=== PATIENT | male | born 1955 | race Caucasian/White ===

== ENCOUNTER → 2017-02-16 | Outpatient (CLI) | payer OTHER ==
[~2017-02-16] MED LIST: ASPI325T45 PO; OMEP10CA2 PO
[2017-02-16 12:46] LABS: ALT/SGPT 22 U/L (12-78); AST/SGOT 18 U/L (15-37); BLOOD UREA NITROGEN 19 mg/dl (7-18); BUN/CREATININE RATIO 26.1 (10-20); CALCIUM 8.5 mg/dl (8.5-10.1); CARBON DIOXIDE 27 mmol/L (21-32); CHLORIDE 110 mmol/L (98-107); CREATININE 0.71 mg/dl (0.60-1.40); GLUCOSE 106 mg/dl (70-99); POTASSIUM 4.8 mmol/L (3.5-5.1); SODIUM 143 mmol/L (136-145)
[2017-02-16 12:52] LABS: ALB/GLOB RATIO 1.2 (0.9-2); ALKALINE PHOSPHATASE 77 U/L (45-117); CHOLESTEROL 260 mg/dl (0-200); CHOLESTEROL/HDL RATIO 4.7; HDL CHOLESTEROL 55 mg/dl; LDL CHOLESTEROL CALCULATED 190 mg/dl; TRIGLYCERIDES 76 mg/dl (0-150); VERY LOW DENSITY LIPOPROT CALC 15 mg/dl
[2017-02-16 13:11] LABS: LYME DISEASE AB IGG NEG (NEG); LYME DISEASE AB IGM NEG (NEG)
== END | disposition home or self-care (01) ==
LOC: C.LABBFT 09:10
PROVIDERS: ATTEND Physician Assistant Medical
DX: Z13.6 Encounter for screening for cardiovascular disorders (principal); Z12.5 Encounter for screening for malignant neoplasm of prostate; T14.8XXA Other injury of unspecified body region, initial encounter; W57.XXXA Bitten or stung by nonvenomous insect and other nonvenomous arthropods, initial encounter

== ENCOUNTER → 2017-02-16 | Outpatient (CLI) | payer OTHER ==
--- NOTE | 2017-02-16 10:57 | DIAGNOSTIC IMAGING REPORT ---
R KNEE 1 OR 2 VIEWS ROUTINE CLINICAL HISTORY: M25.561 Right knee pain COMPARISON STUDY: None. FINDINGS: Small right knee effusion. Mild cartilage space narrowing within the medial and lateral compartments consistent with degenerative change. No fracture or dislocation. IMPRESSION: No fractures. Small right knee effusion Electronically signed by: Allen Payne M.D. 02/16/2017 10:56 AM Dictated Date/Time: 02/16/2017 10:55 AM
--- NOTE | 2017-02-16 10:58 | DIAGNOSTIC IMAGING REPORT ---
C-SPINE ROUTINE 4 OR 5 VIEWS HISTORY: Neuropathy. Pain. R20.2 Paresthesia of both lower extremities COMPARISON: None. FINDINGS: The cervical spine is visualized from C1 through the superior endplate of T1. There is no fracture. No subluxation. Moderate degenerative disc change at the entire cervical region. Osteophytic narrowing of the bulk of the neuroforamina bilaterally at all levels. IMPRESSION: No fracture or subluxation within the cervical spine. Generalized moderate degenerative change. Osteophytic narrowing of the bulk of the neuroforamina bilaterally at all levels. The above report was generated using voice recognition software. It may contain grammatical, syntax or spelling errors. Electronically signed by: Ren Forte M.D. 02/16/2017 10:56 AM Dictated Date/Time: 02/16/2017 10:54 AM
--- NOTE | 2017-02-16 10:59 | DIAGNOSTIC IMAGING REPORT ---
L-SPINE MIN 4 VIEWS ROUTINE HISTORY: 61 years-old Male R20.2 Paresthesia of both lower extremities acute right knee pain with tingling of the bilateral lower extremities COMPARISON: CT 10/19/2016 TECHNIQUE: 5 views of the lumbar spine FINDINGS: 5 lumbar type vertebral segments are present multilevel advanced intervertebral disc space narrowing, endplate spurring and facet arthropathy. 20% anterior endplate compression deformity of T12 appears unchanged from comparison CT study. No significant retropulsion. No acute compression deformity or malalignment. There is mild straightening of the normal cervical lordosis. No pars defect. Soft tissues are unremarkable. Moderate degenerative changes of the bilateral hips. IMPRESSION: 1. No acute lumbar spine fracture or subluxation. 2. Chronic 20% anterior endplate compression deformity of T12. 3. Multilevel advanced intervertebral disc space narrowing, facet arthropathy and spondylitic changes. The above report was generated using voice recognition software. It may contain grammatical, syntax or spelling errors. Electronically signed by: Nicolas Charles M.D. 02/16/2017 10:58 AM Dictated Date/Time: 02/16/2017 10:55 AM
== END | disposition home or self-care (01) ==
LOC: C.RAD1850 09:49
PROVIDERS: ATTEND Physician Assistant Medical
DX: R20.2 Paresthesia of skin (principal); M25.561 Pain in right knee; M47.812 Spondylosis without myelopathy or radiculopathy, cervical region; M48.02 Spinal stenosis, cervical region; M25.461 Effusion, right knee; M51.36 Other intervertebral disc degeneration, lumbar region; S22.080A Wedge compression fracture of T11-T12 vertebra, initial encounter for closed fracture; X58.XXXA Exposure to other specified factors, initial encounter

== ENCOUNTER → 2017-03-10 | Outpatient (CLI) | payer OTHER | END | disposition home or self-care (01) | LOC: C.CPL 09:07 | PROVIDERS: ATTEND Orthopaedic Surgery Sports Medicine | DX: Z01.810 Encounter for preprocedural cardiovascular examination (principal) ==

== ENCOUNTER → 2017-04-17 | Day surgery (SDC) | payer OTHER ==
[2017-04-10 07:54] VITALS: Ht 177.8 cm; Wt 119.5 kg
[~2017-04-17] VITALS: Ht 177.8 cm; Wt 119.5 kg
[~2017-04-17] MED LIST changes: -ASPI325T45 PO; +ASPI81TA28 PO; +DEXAMETHASONE SOD INJ 4 MG/ML VIAL ONE; +KETO10TA PO; +LIDOCAINE HCL 1% MPF 5 ML VIAL ONE; +METH1TAB81 PO; -OMEP10CA2 PO; +PRLSR20 PO
--- NOTE | 2017-04-17 07:35 | History & Physical Bridge - SC ---
H&P Re-Evaluation Bridge Note: I have examined the patient, reviewed the History & Physical and in the interval since the performance of the History & Physical I have noted the following changes of clinical significance: No changes noted
--- NOTE | 2017-04-17 07:52 | Discharge Instructions-SurgCtr ---
Discharge Instructions Date of Service Apr 17, 2017. Visit Reason for Visit: Spondylosis Discharge Discharge Diagnosis / Problem: same Discharge Goals Goal(s): Improve function Medications Stopped Medications Name(s): ASA 81MG DAILY,LAST DOSE 04/10/17 Activity Recommendations Activity Limitations: resume your previous activity Anesthesia . Post Anesthesia Instructions: If you have had General Anesthesia or IV Sedation: * Do not drive today. * Resume driving when surgeon permits. * Do not make important decisions or sign legal documents today. * Call surgeon for: 1. Temperature elevations greater than 101 degrees F. 2. Uncontrollable pain. 3. Excessive bleeding. 4. Persistent nausea and vomiting. 5. Medication intolerance (nausea, vomiting or rash). * For nausea and vomiting use only clear liquids such as: tea, soda, bouillon until nausea subsides, then gradually increase diet as tolerated. * If you have any concerns or questions, call your surgeon's office. If physician is unavailable and it is an emergency, call 911 or go to the nearest emergency room. . Diet Recommendations Home Diet: no limitations Procedures Procedures Performed: EPIDURAL STEROID INJECTION L3-L4;L4-L5 Pending Studies Studies pending at discharge: no Medical Emergencies . Who to Call and When: Medical Emergencies: If at any time you feel your situation is an emergency, please call 911 immediately. . Non-Emergent Contact Non-Emergency issues call your: Primary Care Provider . . "Provider Documentation" section prepared by Kishore Rascon. .
--- NOTE | 2017-04-17 07:53 | [facility] Post Operative Brief Note ---
Immediate Operative Summary Operative Date Apr 17, 2017. Pre-Operative Diagnosis SPONDYLOSIS Post-Operative Diagnosis SAME Procedure(s) Performed EPIDURAL STEROID INJECTION L3-L4;L4-L5 Surgeon Dr Kishore Rascon Street Sweeper Operator Surgeon(s) none Estimated Blood Loss 0 Findings arthritis Specimens none Complication(s) None Disposition Recovery Room / PACU
[2017-04-17 07:55] VITALS: TEMP 36.5
--- NOTE | 2017-04-17 08:04 | OPERATIVE REPORT ---
DATE OF OPERATION: 04/17/2017 PREOPERATIVE DIAGNOSIS: Stenosis lumbar spine, L3-L4, L4-L5. POSTOPERATIVE DIAGNOSIS: Same. PROCEDURE: Include epidural steroid injection 4-5 and 3-4 lumbar. DESCRIPTION OF PROCEDURE: The patient was taken to the minor procedure room and placed prone, prepped, draped sterile. The 22-gauge Tuohy spinal needle advanced to the epidural space at L4-5, 2 mL of dexamethasone injected in toto. The patient tolerated the procedure well. We used the volume acceptance technique. The patient was discharged home in improved stable condition. I attest to the content of the Intraoperative Record and any orders documented therein. Any exception s are noted below.
[2017-04-17 08:07] VITALS: BP 144/80; PULSE 65; O2SAT 95
--- NOTE | 2017-04-29 16:01 | EDITING REQUIRED CODING QUERY ---
CODING QUERY Dr. Rascon: Date of Service: 04-17-17 To promote full compliance with coding requirements relating to patient care, provider participation is requested in all cases of [place] [employer] footballer uncertainty. Please assist us with the question(s) below: Coding Question(s): In your dictation you stated L4-5 was injected. Throughout the chart it is stated that L3-4 and L4-5 were going to have an epidural steroid injection. Please specify if 2 levels were injected and if so, please document for record completion. Please specify if injections were performed on: ( ) Right ( ) Left ( ) Bilateral Physician's Response(s): Thank you Lupe Junior, Glass Finisher Principal Diagnosis: "_that condition established after study, to be chiefly responsible for occasioning the admission of the patient to the hospital for care." Co-Existing Principal Diagnosis: "_when two or more diagnoses equally meet the criteria for principal diagnosis as determined by the circumstances of admission, diagnostic work up, and/or therapy provided, and the Alphabetic Index, Tabular List, or another coding guideline does not provide sequencing direction, any one of the diagnoses may be sequenced first." "When the physician has documented what appears to be a current diagnosis in the body of the record, but has not included the diagnosis in the final diagnostic statement, the physician should be asked whether the diagnosis should be added." (Source Coding [facility] 2 QTR90. p3-4)
--- NOTE | 2017-04-30 11:09 | OPERATIVE REPORT ---
DATE OF OPERATION: 04/17/2017 PROCEDURE: Epidural steroid injection centrally placed at L3-L4, L4-L5 lumbar spine. DESCRIPTION OF PROCEDURE: The patient was taken to the minor procedure room, prepped and draped sterile. We engaged the epidural space centrally located L3-4, L4-5. One mL of dexamethasone injected each of these areas. Needle withdrawn. Band-Aid applied. The patient returned to recovery satisfactory. I attest to the content of the Intraoperative Record and any orders documented therein. Any exception s are noted below.
== END | disposition home or self-care (01) ==
LOC: X.SURG 06:45
PROVIDERS: ATTEND Orthopaedic Surgery Orthopaedic Surgery of the Spine
DX: M47.896 Other spondylosis, lumbar region (principal); M54.5 Low back pain; E78.00 Pure hypercholesterolemia, unspecified; J45.909 Unspecified asthma, uncomplicated; Z83.3 Family history of diabetes mellitus; Z82.49 Family history of ischemic heart disease and other diseases of the circulatory system; Z82.3 Family history of stroke

== ENCOUNTER 2017-05-25 05:26 | Observation (INO) | payer OTHER ==
[2017-05-15 09:48] VITALS: Ht 177.8 cm; Wt 118.9 kg
--- NOTE | 2017-05-15 10:12 | PAT Medication Instructions ---
Service Date May 15, 2017. Current Home Medication List Aspirin (Aspirin Ec), 162 MG PO QAM Aspirin (Aspirin Ec), 81 MG PO QPM Ibuprofen (Advil), 400-600 MG PO PRN Omeprazole (Prilosec), 20 MG PO QAM Medication Instructions For Your Scheduled Surgery - Check with surgeon for instructions: Aspirin (Aspirin Ec), 162 MG PO QAM Aspirin (Aspirin Ec), 81 MG PO QPM Ibuprofen (Advil), 400-600 MG PO PRN - Take the following medications the morning of surgery with a sip of water: Omeprazole (Prilosec), 20 MG PO QAM If you have any questions please call us at [phone] or [phone] or [phone]
--- NOTE | 2017-05-15 10:59 | DIAGNOSTIC IMAGING REPORT ---
CHEST 2 VIEWS ROUTINE HISTORY: Preop. COMPARISON: None. FINDINGS: The lungs are clear. Cardiac silhouette is normal in size. No pleural effusions. No pneumothorax. Small symmetric nodular densities overlying the lower lobes favor nipple shadows. IMPRESSION: No acute process. Electronically signed by: Allen Payne M.D. 05/15/2017 10:58 AM Dictated Date/Time: 05/15/2017 10:57 AM
[2017-05-15 11:15] LABS: BASO % 0.5 %; BASO ABS # 0.03 K/uL (0-0.2); EOS % 2.4 %; EOS ABS # 0.13 K/uL (0-0.5); HEMATOCRIT 40.3 % (42-52); HEMOGLOBIN 13.9 g/dL (14.0-18.0); IG# 0.01 K/uL (0.00-0.02); LYMPH % 31.9 %; LYMPH ABS # 1.76 K/uL (1.2-3.4); MEAN CELL VOLUME 87.8 fL (80-100); MEAN CORPUSCULAR HEMOGLOBIN 30.3 pg (25-34); MEAN CORPUSCULAR HGB CONC 34.5 g/dl (32-36); MEAN PLATELET VOLUME 10.2 fL (7.4-10.4); MONO ABS # 0.44 K/uL (0.11-0.59); NEUT ABS # 3.14 K/uL (1.4-6.5); PLATELET COUNT 167 K/uL (130-400); RED CELL DISTRIBUTION WIDTH CV 13.2 % (11.5-14.5); RED CELL DISTRIBUTION WIDTH SD 41.6 fL (36.4-46.3); WHITE BLOOD COUNT 5.51 K/uL (4.8-10.8)
[2017-05-15 11:21] LABS: CALCIUM 8.9 mg/dl (8.5-10.1); CREATININE 0.72 mg/dl (0.60-1.40); POTASSIUM 4.3 mmol/L (3.5-5.1)
[2017-05-15 11:30] LABS: PTT PATIENT 26.1 SECONDS (21.0-31.0)
--- NOTE | 2017-05-24 18:48 | HISTORY & PHYSICAL EXAMINATION ---
DATE OF ADMISSION: 05/25/2017 CHIEF COMPLAINT: Back and lower extremity difficulty, paresthesias, numbness and tingling. PREOPERATIVE DIAGNOSIS: Spinal stenosis. He is being preoped for a laminectomy and fusion L5-S1. He has had ongoing pain, numbness, tingling, almost incapacitating pain for greater than 1 year. He has failed conservative management. He cannot perform the necessary job function currently. PAST MEDICAL HISTORY: High cholesterol, emphysema, hypertension. No cancer. Does have a history of kidney stones. No anesthesia difficulties, obesity, acid reflux. PAST SURGICAL HISTORY: Hammertoe resection, right knee scope, hemorrhoid surgery. SOCIAL HISTORY: Nonsmoker, nonalcohol user. MEDICATIONS: Aspirin and a medication for heartburn. He denies blurred vision, double vision, tinnitus, vertigo, memory loss, confusion. No history of chest pain, palpitations, angina. No asthma, wheezing, shortness of breath. No nausea, vomiting, bowel and bladder incontinence. His major positive review really is only positive review is his lower extremity difficulty, paresthesias, numbness and pain. PHYSICAL EXAMINATION: VITAL SIGNS: His height is 5 feet 6 inches, he is 240 pounds. GENERAL:. He is alert, oriented. Mentation normal. No confusion. Follows directions. Appropriately dressed. HEENT: Normal. CARDIAC: Normal S1, S2, no S3. LUNGS: Clear to auscultation. No rales, rhonchi or wheezing. ABDOMEN: Soft, nontender, no masses, no organomegaly, no pain. EXTREMITIES: Intact. He has decreased knee jerk, decreased Achilles reflexes bilaterally. He has adequate push off strength. He has difficulty to an upright position. He has pain with percussion. RADIOLOGY DATA: Images demonstrate spinal stenosis lumbar spine, lumbar L4 to S1. PROCEDURE: Laminectomy and fusion L4-L5 and L5-S1 lumbar spine.
[~2017-05-25] VITALS: Ht 177.8 cm; Wt 118.9 kg
[2017-05-25] VITALS (10 sets, daily range): BP systolic 125–153; BP diastolic 67–95; PULSE 8–93; TEMP 36.5–36.9; O2SAT 92–96
[~2017-05-25 05:26] MED LIST changes: -DEXAMETHASONE SOD INJ 4 MG/ML VIAL ONE; +IBUP-1050 PO; -KETO10TA PO; -LIDOCAINE HCL 1% MPF 5 ML VIAL ONE; -METH1TAB81 PO
[2017-05-25] MEDS ORDERED: NSS 1000ML IV SCH (06:00)
[2017-05-25] MEDS ORDERED: CEFAZOLIN 2000MG IV PUSH 10 ML IV SCH (06:00)
[2017-05-25] MEDS ORDERED: LACTATED RINGER'S 1000ML 1,000 ML IV SCH (06:00)
[2017-05-25] MEDS ORDERED: DEXAMETHASONE SOD INJ 4 MG/ML VIAL ONE (06:25)
[2017-05-25] MEDS ORDERED: ROCURONIUM BROMIDE 10 MG/ML 5 ML VIAL IV ONE ×2 (06:25→07:59)
[2017-05-25] MEDS ORDERED: MIDAZOLAM HCL 1 MG/ML 2ML VIAL ONE (06:25)
[2017-05-25] MEDS ORDERED: FENTANYL CITRATE INJ 50 MCG/1 ML 2 ML VIAL ONE (06:25)
[2017-05-25] MEDS ORDERED: PROPOFOL IV EMULSION 10 MG/ML 20 ML VIAL IV ONE (06:25)
[2017-05-25] MEDS ORDERED: LIDOCAINE HCL 2% 2 ML VIAL (20MG/ML) ONE (06:25)
[2017-05-25] MEDS ORDERED: ONDANSETRON INJ 2 MG/ML 2 ML VIAL ONE (06:25)
[2017-05-25] MEDS ORDERED: GELATIN SPONGE SZ 100 ONE (06:54)
[2017-05-25] MEDS ORDERED: VANCOMYCIN HCL 1000MG/20ML VIAL ONE (06:55)
[2017-05-25] MEDS ORDERED: THROMBIN FOR SOLN 20000 UNIT KIT ONE (06:55)
[2017-05-25] MEDS ORDERED: BACITRACIN 50000 UNIT VIAL ONE (06:55)
[2017-05-25] MEDS ORDERED: BUPIVACAINE/EPINEPHRINE 0.5% MPF 1:200,000 30 ML VIAL ONE (06:55)
[2017-05-25] MEDS ORDERED: MoRPHine SULFATE 10 MG/ML CARP/VIAL IV PRN (07:00)
[2017-05-25] MEDS ORDERED: FENTANYL CITRATE INJ 50 MCG/1 ML 2 ML VIAL IV PRN (07:00)
[2017-05-25] MEDS ORDERED: ATROPINE SULFATE 0.1 MG/ML 5ML SYR IV PRN (07:00)
[2017-05-25] MEDS ORDERED: ONDANSETRON INJ 2 MG/ML 2 ML VIAL IV PRN ×2 (07:00→09:15)
[2017-05-25] MEDS ORDERED: EpHEDrine SULFATE INJ 50 MG/ML AMP IV PRN (07:00)
[2017-05-25] MEDS ORDERED: HYDROmorphone INJ 2 MG/ML SYR/VIAL ONE (07:41)
[2017-05-25] MEDS ORDERED: EpHEDrine SULFATE 50MG/5ML SYR ONE (07:56)
--- NOTE | 2017-05-25 08:47 | DIAGNOSTIC IMAGING REPORT ---
INTRAOPERATIVE RADIOGRAPH CLINICAL HISTORY: L4-S1 laminectomy. Fluoroscopy time: 2 seconds. FINDINGS: A single spot fluoroscopic image of the lower lumbar spine is presented. A surgical probe projects posteriorly at the level of S1. IMPRESSION: Intraoperative image from lumbar spine surgery as above. See operative report for detailed findings. Electronically signed by: Ashok Hurley M.D. 05/25/2017 8:45 AM Dictated Date/Time: 05/25/2017 8:45 AM
[2017-05-25] MEDS ORDERED: NEOSTIGMINE METHYLSULFATE 5 MG/5 ML SYR ONE (09:05)
[2017-05-25] MEDS ORDERED: GLYCOPYRROLATE INJ 0.2 MG/ML VIAL ONE (09:05)
--- NOTE | 2017-05-25 09:07 | [facility] Post Operative Brief Note ---
Immediate Operative Summary Operative Date May 25, 2017. Pre-Operative Diagnosis Spinal Stenosis Post-Operative Diagnosis Spinal Stenosis Procedure(s) Performed L4-L5, L5-S1 Laminectomy and Fusion Surgeon Dr. Italia Rascon Heel Caser Surgeon(s) Nadya Hendrickson PA-C Estimated Blood Loss 100mL Findings Consistent with Post-Op Diagnosis Specimens none per surgeon Drains None Anesthesia Type General Disposition Disposition: Recovery Room / PACU
[2017-05-25] MEDS ORDERED: ACETAMINOPHEN 325 MG TAB PO PRN (09:15)
[2017-05-25] MEDS ORDERED: HYDROmorphone INJ 2 MG/ML SYR/VIAL IV PRN (09:15)
[2017-05-25] MEDS ORDERED: PROMETHAZINE HCL INJ 12.5 MG in SODIUM CHLORIDE 0.9% 50ML 50 ML IV PRN (09:15)
[2017-05-25] MEDS ORDERED: HYDROmorphone INJ 1 MG/ML SYR IV PRN (09:15)
[2017-05-25] MEDS ORDERED: LORAZEPAM INJ 1 MG in SYRINGE 0 ML IV PRN (09:15)
[2017-05-25] MEDS ORDERED: METOCLOPRAMIDE HCL INJ 5 MG/ML 2 ML VIAL IV PRN (09:15)
[2017-05-25] MEDS ORDERED: LORAZEPAM 1 MG TAB PO PRN (09:15)
[2017-05-25] MEDS ORDERED: OXYCODONE/ACETAMINOPHEN 5-325 TAB PO PRN (09:15)
[2017-05-25] MEDS ORDERED: TRAMADOL HCL 50 MG TAB PO PRN (09:15)
[2017-05-25] MEDS ORDERED: MAGNESIUM HYDROXIDE SUSP 30 ML UDC PO PRN (09:15)
[2017-05-25 09:36] LABS: HEMATOCRIT 37.5 % (42-52)
[2017-05-25] MEDS ORDERED: IV FLUIDS COMPLETED PRN (10:15)
--- NOTE | 2017-05-25 10:22 | OPERATIVE REPORT ---
DATE OF OPERATION: 05/25/2017 PREOPERATIVE DIAGNOSIS: Stenosis lumbar spine L4-L5, L5-S1; minor instability L4-L5, L5-S1. POSTOPERATIVE DIAGNOSIS: Same. PROCEDURE: Included laminectomy and fusion L4-L5 and L5-S1. SURGEON: Dr. Rascon. HISTOLOGY MANAGER: Gordon Hendrickson PA-C. COMPLICATION: Zero. BLOOD LOSS: 100 mL DESCRIPTION OF PROCEDURE: The patient was taken to the operating room, a general intubated anesthetic provided to the patient, placed prone, shaved, scrubbed, prepped and draped sterile. Antibiotic provided prior and a Bhatti catheter administered. We made a skin incision, fascial incision. We dissected out over the transverse processes, putting a deep self-retaining retractor. We then carefully dissected free the neural elements, laminectomy at L5-S1, L4-L5, foraminotomies, partial facetectomies. Each and every nerve root was dissected free of any obstruction. We then irrigated thoroughly. We placed some Gelfoam over the dural structures. We bone grafted over the transverse process of L4-L5 and sacrum bilaterally. We closed in layered fashion with #1 Vicryl, 2-0 and 3-0 nylon. Sterile dressings applied. Vancomycin powder placed deep to the wound. Sterile dressing was applied. The patient returned to PACU stable. No apparent complications. I attest to the content of the Intraoperative Record and any orders documented therein. Any exception s are noted below.
--- NOTE | 2017-05-25 10:25 | Anesthesiology Progress Note ---
Anesthesia Post Op Note Date & Time May 25, 2017 at 10:25 Vital Signs Pain Intensity: 1 Vital Signs Past 12 Hours Date Time Temp Pulse Resp B/P (MAP) Pulse Ox O2 Delivery O2 Flow Rate FiO2 05/25/17 09:45 36.5 05/25/17 09:41 156/79 05/25/17 09:40 93 14 100 05/25/17 09:40 93 14 05/25/17 09:36 158/77 05/25/17 09:35 89 9 05/25/17 09:35 89 9 99 05/25/17 09:31 152/78 05/25/17 09:30 80 16 99 05/25/17 09:30 79 05/25/17 09:26 150/77 05/25/17 09:25 84 12 05/25/17 09:25 83 12 98 05/25/17 09:20 86 13 05/25/17 09:20 86 13 162/77 100 05/25/17 09:17 168/77 05/25/17 09:05 36.3 88 16 167/88 100 Oxymask 7 05/25/17 05:56 36.7 71 20 153/95 94 Room Air Notes Mental Status: alert / awake / arousable, participated in evaluation Pt Amnestic to Procedure: Yes Nausea / Vomiting: adequately controlled Pain: adequately controlled Airway Patency, RR, SpO2: stable & adequate BP & HR: stable & adequate Hydration State: stable & adequate Anesthetic Complications: no major complications apparent
[2017-05-25] MEDS: SODIUM CHLORIDE 0.9% 1000ML 1,000 ML IV SCH ×2 (12:36→23:50)
[2017-05-25] MEDS: KETOROLAC TROMETHAMINE 30 MG/ML VIAL IV SCH ×3 (12:40→23:50)
[2017-05-25] MEDS: DEXAMETHASONE INJ 10 MG in SYRINGE 0 ML IV SCH ×2 (14:04→22:25)
[2017-05-25] MEDS: CEFAZOLIN IV 2,000 MG in SYRINGE 0 ML IV SCH ×2 (16:18→23:50)
[2017-05-25] MEDS: ASPIRIN 81 MG ECTAB PO SCH (20:21)
[2017-05-25] MEDS: OXYCODONE/ACETAMINOPHEN 5-325 TAB PO PRN (20:21)
[2017-05-26 03:05] VITALS: BP 124/61; PULSE 72; TEMP 36.8; O2SAT 94
[2017-05-26] MEDS: KETOROLAC TROMETHAMINE 30 MG/ML VIAL IV SCH ×4 (05:56→23:37)
[2017-05-26] MEDS: DEXAMETHASONE INJ 10 MG in SYRINGE 0 ML IV SCH ×3 (05:56→21:22)
[2017-05-26] MEDS ORDERED: BISACODYL 10 MG SUPP PR PRN (06:00)
[2017-05-26] MEDS ORDERED: BISACODYL 5 MG TABEC PO PRN (06:00)
[2017-05-26] MEDS ORDERED: NURSING DECISION MEDICATION ORDER SCH (06:45)
[2017-05-26 07:45] VITALS: BP 144/73; PULSE 76; TEMP 36.7; O2SAT 94
--- NOTE | 2017-05-26 08:02 | ORTHOPEDICS PROGRESS NOTE ---
DATE: 05/26/2017 SUBJECTIVE: Alert, oriented, moderate complaints of pain, no shortness of breath, confusion. OBJECTIVE: Vital signs stable. Moves extremities. ASSESSMENT: Laminectomy and fusion done yesterday. He is now 22 hours post-surgery. DISPOSITION: Instruction precautions, education. We will pull his Hemovac drain. We will get him up and ambulatory. We will tentatively get him home tomorrow.
[2017-05-26] MEDS: CEFAZOLIN IV 2,000 MG in SYRINGE 0 ML IV SCH (08:47)
[2017-05-26] MEDS: POLYETHYLENE (MIRALAX) 17 GM PACK PO SCH (08:47)
[2017-05-26] MEDS: PANTOprazole SOD 40 MG TAB PO SCH (08:47)
[2017-05-26] MEDS: ASPIRIN 81 MG ECTAB PO SCH ×2 (08:47→21:21)
[2017-05-26 11:28] VITALS: BP 150/74; PULSE 70; TEMP 36.9; O2SAT 95
[2017-05-26] MEDS: OXYCODONE/ACETAMINOPHEN 5-325 TAB PO PRN (12:07)
[2017-05-26 15:52] VITALS: BP 95/50; PULSE 70; TEMP 36.7; O2SAT 95
[2017-05-26 20:57] VITALS: BP 132/65
[2017-05-26 23:50] VITALS: BP 137/77; PULSE 61; TEMP 36.6; O2SAT 96
[2017-05-27] MEDS: KETOROLAC TROMETHAMINE 30 MG/ML VIAL IV SCH ×2 (05:40→12:26)
[2017-05-27 07:56] VITALS: BP 150/80; PULSE 69; TEMP 36.8; O2SAT 94
--- NOTE | 2017-05-27 07:57 | Discharge Instructions ---
Discharge Instructions Date of Service May 27, 2017. Admission Reason for Admission: Spinal Stenosis Discharge Discharge Diagnosis / Problem: same Discharge Goals Goal(s): Improve function Activity Recommendations Activity Limitations: as noted below Lifting Limitations: until after follow-up appointment Exercise/Sports Limitations: until after follow-up appointment May Resume Sexual Activity: after follow-up appointment Shower/Bathe: keep incision dry no bending; CHEST PAIN ; CALL 911 . Instructions / Follow-Up Instructions / Follow-Up MEDICATIONS: Please take your prescriptions as instructed at your pre-op appointment. SPECIAL CARE: The following information is intended to answer some of the common questions and concerns regarding your surgery. Each patient is an individual and receives individual counselling throughout the course of treatment, from diagnosis to surgery all the way through recovery. What follows is not an exhaustive list, but should be a useful guide to some of the common questions and concerns patients have regarding their surgeries. These are not provided to keep you from calling us; rather, they give you something accurate and concrete to reference as you recover from your procedure. If you need us, we are available to you. As always, if you are not sure about something, call us at [phone]. MEDICAL EMERGENCIES: For these conditions, call 911 or go to your local hospital-based Emergency Department - not [facility] or equivalent. * Paralysis * Severe chest pain or difficulty breathing * Swelling or redness of either leg Spine procedures can be rather complex and though complications are rare, they do occur. In such cases, effective advice regarding emergency situations cannot always be addressed over the telephone. You may be referred to the emergency department for more effective management of your problem. Activity Limitations: It is important to give your body time to heal, so please limit your activities : * In general, don't do anything that moves your spine too much. You should avoid contact sports, twisting or heavy lifting while you recover. * 5-10 pounds is all you should attempt to lift. * You should not plan on driving for approximately 3 weeks and you should avoid traveling more than 30-45 minutes at a time. Longer trips should be broken down with walking breaks spaced appropriately. * Physical therapy is not usually required. * Walking and good posture practices will help you recover and regain your function. * Avoid straining or sudden changes in position. * In general, the goal is to take it easy and recover. Don't cause any new problems. Just relax. Showers: * Do not take a bath, use a Jacuzzi or hot tub or otherwise submerge your incision. * It is usually safe to take a shower 4-5 days after your surgery. * Your incision does not require any special creams or ointments. * Simply clean it with soap and water, dry and re-dress with a clean bandage afterwards. Incision: * Keep incision clean, dry and protected until your first follow-up appointment. * Some amount of drainage and redness is normal. Any drainage should be fairly clear and not have a foul odor. * If you feel anything is wrong or you have excessive drainage, please call us. * Your stitches and socrates will be removed 10-14 days after your surgery. At the time of your first post-op visit. * Neck surgeries are typically closed with a suture underneath the skin. The steri-strips over the incision should be maintained until we see you in the office. Bracing: * You may be provided with a back or neck brace to encourage good posture and prevent injury. It will remind you not to do too much as you heal and will alert others to the fact that you have had a surgery. * Back braces may be removed for showers and when you are resting at home. They must be worn when you are walking around for any period of time or for travel. * For neck surgery, you will likely be provided with two cervical collars. The soft collar ([place] or foam rubber) is worn most commonly throughout the day and while sleeping. The plastic collar (provided at the hospital) is for showering/bathing. * Except while eating, collars should remain in place. More specifically, bracing is provided for a purpose and should be worn. * Please obtain your brace or collars prior to your operation and bring them to the hospital with you on the day of surgery. * You should also bring your collars to your post-op appointment with Dr. Rascon. You should always take good care of your body and practice healthy habits, especially following surgery. You should: * Follow your doctor's treatment plan * Sit and stand properly with good posture (ears over shoulders, shoulders over hips) Don't slouch * Learn to lift correctly * Exercise regularly (low-impact aerobic exercise is especially good, but check with your doctor first) * Generally, be up and walking for 5-10 minutes at a time at least 3-4 times per day from the day you get home * Increasing walking to tolerance until you can walk for 20-30 minutes at a time * Attain and maintain a healthy body weight * Eat healthy foods ( a well-balanced, low-fat diet rich in fruits and vegetables) and get enough calcium * Avoid excessive use of alcohol When to call our office - If you notice any of the following: * Increased pain not relieve by pain medicine * Fevers greater then 100 degrees F, chills or flu symptoms * Increased redness around incision * Drainage from the incision that is not clear * Any foul smelling drainage * Swelling or fluid collection beneath the skin Miscellaneous: * In the hospital, you may be given a walker or cane for support while walking. These are temporary needs and are intended to prevent injuries due to falls. You may discontinue them when you feel strong and steady enough on your feet. * Sleep in a comfortable position. We find that many patients find a lounge chair or recliner with several pillows to be beneficial in the early post-operative period. * The support stockings should be used for 7-10 days and may be discontinued when you are back to walking more and conducting usual household activities. No problem is insignificant. We are here to help you and get you well. Contact us at [phone]. Definitions: Foraminotomy: If part of the disc or a bone spur (osteophyte) is pressing on a nerve as it leaves the vertebra (through an exit called the foramen), a foraminotomy may be done. Otomy means "to make an opening." A foraminotomy is making the opening of the foramen larger, so the nerve can exit without being compressed. Laminotomy: Similar to the foraminotomy, a laminotomy makes a larger opening, this time in your bony plate protecting your spinal canal and spinal cord (the lamina). The lamina may be pressing on your nerve, so the surgeon may make more room for the nerves using a laminotomy. Laminectomy: Sometimes, a laminotomy is not sufficient. The surgeon may need to remove all or part of the lamina. This procedure is called a laminectomy. This can often be done at many levels without any harmful effects. Current Hospital Diet Patient's current hospital diet: Regular Diet Discharge Diet Recommended Diet: Regular Diet Procedures Procedures Performed: L4-L5, L5-S1 Laminectomy and Fusion Pending Studies Studies pending at discharge: no Medical Emergencies . Who to Call and When: Medical Emergencies: If at any time you feel your situation is an emergency, please call 911 immediately. . Non-Emergent Contact Non-Emergency issues call your: Primary Care Provider . "Provider Documentation" section prepared by Kishore Rascon. . VTE Core Measure Inpt VTE Proph given/why not?: Treatment not indicated
[2017-05-27] MEDS ORDERED: HYDR-4383 PO (07:58)
[2017-05-27] MEDS ORDERED: IBUP-1427 PO (08:00)
[2017-05-27 08:12] VITALS: O2SAT 94
--- NOTE | 2017-05-27 08:19 | DISCHARGE SUMMARY ---
SUBJECTIVE: Alert, oriented. No chest pain, shortness of breath, no confusion. OBJECTIVE: Vital signs stable. Moves all extremities. No apparent deficits. ASSESSMENT: Status post lumbar spine laminectomy for stenosis, doing well in the short run. DISPOSITION: Instructions, precautions, education. We will discharge him home later on this morning. Use medication on his chart. He has a followup appointment. He is being given ample instructions, precautions, and importantly chest pain, shortness of breath to call 911.
[2017-05-27] MEDS: ASPIRIN 81 MG ECTAB PO SCH (08:35)
[2017-05-27] MEDS: PANTOprazole SOD 40 MG TAB PO SCH (08:36)
[2017-05-27] MEDS: POLYETHYLENE (MIRALAX) 17 GM PACK PO SCH (08:36)
[2017-05-27 12:07] VITALS: BP 150/80; PULSE 69; TEMP 36.8; O2SAT 94
== END 2017-05-27 13:34 | disposition home or self-care (01) ==
LOC: C.ACU 05:26 → C.3E 07:10 → ENRESERV 09:35
PROVIDERS: ADMIT Orthopaedic Surgery Orthopaedic Surgery of the Spine; ATTEND Orthopaedic Surgery Orthopaedic Surgery of the Spine
DX: M48.061 Spinal stenosis, lumbar region without neurogenic claudication (principal); E78.00 Pure hypercholesterolemia, unspecified; J43.9 Emphysema, unspecified; I10 Essential (primary) hypertension; Z79.82 Long term (current) use of aspirin

== ENCOUNTER → 2017-08-05 | Outpatient (CLI) | payer OTHER ==
[~2017-08-05] MED LIST changes: +HYDR-4383 PO; +IBUP-1427 PO
== END | disposition home or self-care (01) ==
LOC: C.LABBFT 09:07
PROVIDERS: ATTEND Physician Assistant Medical
DX: E78.5 Hyperlipidemia, unspecified (principal)

== ENCOUNTER → 2017-11-24 | Outpatient (CLI) | payer OTHER ==
[2017-11-24 12:32] LABS: BASO % 0.4 %; BASO ABS # 0.02 K/uL (0-0.2); EOS % 2.4 %; EOS ABS # 0.12 K/uL (0-0.5); HEMATOCRIT 39.6 % (42-52); HEMOGLOBIN 13.3 g/dL (14.0-18.0); LYMPH % 35.2 %; LYMPH ABS # 1.78 K/uL (1.2-3.4); MEAN CELL VOLUME 87.2 fL (80-100); MEAN CORPUSCULAR HEMOGLOBIN 29.3 pg (25-34); MEAN CORPUSCULAR HGB CONC 33.6 g/dl (32-36); MEAN PLATELET VOLUME 11.1 fL (7.4-10.4); MONO % 8.9 %; MONO ABS # 0.45 K/uL (0.11-0.59); NEUT % 53.1 %; NEUT ABS # 2.69 K/uL (1.4-6.5); PLATELET COUNT 127 K/uL (130-400); RED CELL DISTRIBUTION WIDTH CV 13.8 % (11.5-14.5); RED CELL DISTRIBUTION WIDTH SD 44.1 fL (36.4-46.3); WHITE BLOOD COUNT 5.06 K/uL (4.8-10.8)
[2017-11-24 13:09] LABS: ALBUMIN 3.6 gm/dl (3.4-5.0); ALKALINE PHOSPHATASE 65 U/L (45-117); ALT/SGPT 17 U/L (12-78); AST/SGOT 15 U/L (15-37); BLOOD UREA NITROGEN 18 mg/dl (7-18); CALCIUM 8.3 mg/dl (8.5-10.1); CARBON DIOXIDE 24 mmol/L (21-32); CREATININE 0.83 mg/dl (0.60-1.40); GLUCOSE 99 mg/dl (70-99); POTASSIUM 4.3 mmol/L (3.5-5.1); SODIUM 139 mmol/L (136-145); TOTAL PROTEIN 6.4 gm/dl (6.4-8.2)
== END | disposition home or self-care (01) ==
LOC: C.LABBFT 08:59
PROVIDERS: ATTEND Physician Assistant Medical
DX: R03.0 Elevated blood-pressure reading, without diagnosis of hypertension (principal)

== ENCOUNTER → 2017-12-11 | Outpatient (CLI) | payer OTHER ==
[~2017-12-11] MED LIST changes: -HYDR-4383 PO; -IBUP-1427 PO
--- NOTE | 2017-12-11 11:23 | DIAGNOSTIC IMAGING REPORT ---
MRA HEAD WITHOUT CONTRAST CLINICAL HISTORY: 62 years-old Male presenting with high blood pressure, dizziness, tunnel vision. TECHNIQUE: MR angiography of the head was performed without the use of intravenous contrast using 3-D [id number] technique. 3-D volumetric and/or maximum intensity projection (MIP) images were subsequently reconstructed for review. IV contrast: None. COMPARISON: None. FINDINGS: Anterior circulation: Intracranial portions of the internal carotid arteries patent to the level of the termini. Anterior and middle cerebral arteries patent. Anterior communicating artery hypoplastic or aplastic. Posterior circulation: Codominant vertebral arteries. Intradural portions of the vertebral arteries patent. Posterior inferior cerebellar arteries patent. Basilar artery patent. Anterior inferior cerebellar arteries poorly visualized. Superior cerebellar and posterior cerebral arteries patent. Posterior communicating arteries hypoplastic or aplastic. IMPRESSION: 1. No significant stenosis, aneurysm, or focal vessel occlusion. Electronically signed by: Chris Keene M.D. 12/11/2017 11:22 AM Dictated Date/Time: 12/11/2017 11:15 AM
== END | disposition home or self-care (01) ==
LOC: C.MRI 10:06
PROVIDERS: ATTEND Physician Assistant Medical
DX: R55 Syncope and collapse (principal)